=== PATIENT | female | born 1975 | race Caucasian/White ===

== ENCOUNTER 2025-02-26 00:56 | Day surgery (SDC) | payer BC, SELFPAY ==
[2025-02-16 14:00] VITALS: BMI 28.7
--- NOTE | 2025-02-20 13:38 | PC.NURSE ---
Spoke with PATIENT regarding medication XARELTO. PATIENT verbalizes understanding that the last dose is to be taken on 02/23/2025 and the Endoscopist will instruct them when to restart after the procedure.
--- OUTSIDE RECORDS SUMMARY | 2025-02-26 01:01 | XMS_ITS | Clinical Summary ---
Author Organization [facility] Joan ricardo [facility] Address [address] [facility] [place] [address] Care Team Providers Care Electron Gun Inspector Name Role Phone Unavailable Primary Care Provider Unavailabl e Social History Tobacco Use Types Packs/Day Years Used Date Smoking Tobacco: Never Assessed Comments Unknown Sex and Gender Information Value Date Recorded Sex Assigned at Not on file Legal Sex Female 12:01 PM CDT Gender Identity Not on file Sexual Orientation Not on file Plan of Treatment Upcoming Encounters Date Type Department Care Team (Late st Contact Info) Description 06/15/2025 1:30 PM COIL REPAIR TECHNICIAN Office Visit [facility] Oncology and Hematology - [place] [address] [facility] [address] [address] Oniel Garcia MD [address] [facility] [address] [place] [address] Health Maintenance Due Date Last Done Comments DTAP/TDAP/TD VACCINES (1 - Tdap) 1995 HEPATITIS B VACCINES (1 of 3 - 19+ 3-dose series) 01/1996 HPV/Cotest (21-29) 1997 CERVICAL CANCER SCREENING 2006 HPV/Cotest (30-65) 2006 PAP SMEAR 2006 BREAST CANCER SCREENING 2016 COLORECTAL SCREENING 2021 Colorectal Cancer Screening 2021 FIT-DNA Q 3 years 2021 FIT/FOBT Q 1 year 2021 Flex Sig/CT Colonography Q 5 years 2021 INFLUENZA VACCINE (#1) 2024 Insurance [facility] FEDERAL
--- OUTSIDE RECORDS SUMMARY | 2025-02-26 01:01 | XMS_ITS | Clinical Summary ---
Author Organization [facility] Address [address] [place] [address] Care Team Providers Care Inspector Boiler Name Role Phone Nadya Condon MD Primary Care Provider Allergies No known active allergies Medications omeprazole (PriLOSEC) 20 mg capsule 08/29/2019 Active Xarelto 20 mg tablet daily 11/18/2019 Active venlafaxine XR (EFFEXOR-XR) 37.5 mg 24 hr capsule daily 08/28/2019 Active iron 18 mg tablet Take by mouth Active folic acid (FOLVITE) 400 mcg tablet Take 1 tablet (400 mcg total) by mouth daily Active cyanocobalamin (Vitamin B-12) 100 mcg tabletIndication s:Prevention of Vitamin B12 Deficiency Take 1 tablet (100 mcg total) by mouth daily Active Active Problems Problem Noted Date Diagnosed Date Encounter for screening mammogram for breast can cer 03/14/2023 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 Family history of breast cancer 03/10/2021 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 03/10/2021 Breast cancer screening, high risk patient 03/10 Dense breast tissue on mammogram 03/10/2021 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 11/13/2017 Surgical History Surgery Date Site/Laterality Comments TUBAL LIGATION 05/28/2012 - 05/27/2013 Medical History Medical History Date Comments 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 (HCC) 11/13/2017 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 03/10/2021 Fibroid uterus Family History Medical History Relation Name Comments SHYANN Mother Breast cancer Mother Lung cancer Mother Lymphoma Mother Ovarian cancer Other M greast Grandma Colon cancer Neg Hx Pancreatic cancer Neg Hx Prostate cancer Neg Hx Uterine cancer Neg Hx Relation Name Status Comments Mother Alive Other M greast Grandma Social History Tobacco Use Types Packs/Day Years Used Date Smoking Tobacco: Former Cigarettes Smokeless Tobacco: Never Tobacco Cessation:Counseling Given: Not Answered Comments No Sex and Gender Information Value Date Recorded Sex Assigned at Not on file Legal Sex Female 1:48 PM CDT Gender Identity Not on file Sexual Orientation Straight 01/13/2020 12 :27 PM CDT Obstetrics History Para Term AB IAB SAB Ectopic Multiple Livin g Live Births 3 3 3 3 Date Outcome GA Total Labor Labor/2nd/3rd Weight Sex Type Anes PTL Nila A1 A5 Name Clin Term Term Term Last Filed Vital Signs Vital Sign Reading Time Taken Comments Blood Pressure 122/79 04/02/2024 2:46 PM SALES ENGAGEMENT MANAGER Pulse 75 04/02/2024 2:46 PM SALES ENGAGEMENT MANAGER Temperature 36.5 C (97.7 F) 04/02/2024 2:46 PM SALES ENGAGEMENT MANAGER Respiratory Rate 16 04/02/2024 2:46 PM SALES ENGAGEMENT MANAGER Oxygen Saturation 99% 04/02/2024 2:46 PM SALES ENGAGEMENT MANAGER Inhaled Oxygen Concentration - - Weight 73.4 kg (161 lb 12.8 oz) 04/02/2024 2:46 PM SALES ENGAGEMENT MANAGER Height 160 cm (5' 3) 03/14/2023 11:21 AM CDT Body Mass Index 28.66 03/14/2023 11:21 AM CDT Plan of Treatment Health Maintenance Due Date Last Done Comments Colon Cancer Screening-Colonoscopy 1976 Depression Screening 1976 Hepatitis C Screening 1976 DTaP/Tdap/Td Vaccine (1 - Tdap) 1987 Hepatitis B Screening 1994 Cervical Cancer Screening 07/13/2023 07/13/2022 Regular Well Visit/Exam 18-64 07/13/2023 07/13/2022 Influenza Vaccine (#1) 2025 Breast Cancer Screening-Mammogram 04/02/2025 04/02/2024, 03/14/2023, 03/15/2022, Additional history exists Pneumococcal vaccine <65 Aged Out No longer eligible based on patient's age to complete this topic Procedures Procedure Name Priority Date/Time Associated Diagnosis Comments SCREENING MAMMOGRAM BILATERAL W TRISTON Schedule Routine, Read Routine (OP Routine) 04/02/2024 1:45 PM SALES ENGAGEMENT MANAGER Encounter for screening mammogram for breast cancer Breast cancer screening by mammogram PAP AND HIGH RISK HPV, REFLEX TO GENOTYPING Routine 07/13/2022 9:19 AM SALES ENGAGEMENT MANAGER Well woman exam from Last 3 Months or Most Recently Relevant to Health Maintenance Results * Screening Mammogram Bilateral W Triston (04/02/2024 1:45 PM SALES ENGAGEMENT MANAGER) Anatomical Region Laterality Modality Breast Bilateral Mammography Impressions 04/02/2024 2:55 PM SALES ENGAGEMENT MANAGER BI-RADS ATLAS category (overall): 1 - Negative There is no mammographic evidence of malignancy. A 1 year screening mammogram is recommended. The patient has been or will be contacted. We recommend annual screening mammography for women at average risk of breast cancer beginning at age 40, based on guidelines of the [employer] (ACR Practice Parameter for the Performance of Screening and Diagnostic Mammography) and [employer]. For women with and elevated risk of breast cancer, please refer to the ACR Practice Parameter for specific screening recommendations. The patient will be entered into a reminder system with a target due date of 1 year for her next screening exam. Narrative 04/02/2024 2:55 PM SALES ENGAGEMENT MANAGER Screening Mammogram Bilateral W Triston: 04/02/24 The study was acquired using full field digital technology and interpreted from soft copy. 2D digital mammographic views, as well as 3D digital tomosynthesis were performed in the CC and MLO projections. CLINICAL: Encounter for screening mammogram for breast cancer Breast cancer screening by mammogram. No relevant medical history has been documented for this patient. History of breast cancer in Mother. COMPARISONS: 09/10/2023 MRI Breast Bilateral W WO Contrast 03/14/2023 Screening Mammogram Bilateral W Triston 09/09/2022 MRI Breast Bilateral W WO Contrast 03/15/2022 US Breast Left Limited BREAST TISSUE: The breasts are heterogeneously dense, which may obscure small masses. FINDINGS: No suspicious masses, suspicious calcifications, or other suspicious findings are seen within either breast. There has been no suspicious change. us Valentina Lees MD IMG MAMMO PROCEDURES Final Result * Pap and High Risk HPV, reflex to Genotyping (07/13/2022 9:19 AM SALES ENGAGEMENT MANAGER) Thin prep (Pap test) 07/13/2022 9:19 AM SALES ENGAGEMENT MANAGER 07/14/2022 9:19 AM SALES ENGAGEMENT MANAGER Narrative PATHOLOGY [facility] - 07/18/2022 1:28 PM SALES ENGAGEMENT MANAGER [facility] Department of Pathology [address] [place] [address] Final Report with Addendum Note to Patients: This report may contain a detailed description of human tissue sent by a health care provider to the laboratory for pathologic evaluation. The content of this report is essential for diagnosis and may provide important critical findings. This information may be unfamiliar to patients to review without a medical professional present. It is advised that the patient review this report in the presence of a health care provider who can answer questions and explain the details. Patient Name: ROSSI NICOLAS Address: [address] [place] [address] Gender: F : 1975 (Age: 47) Service: Location: [facility] : [id number] [facility] #: [id number] Patient Type: [facility] SPECIMEN Taken: 07/13/2022 Received: 07/14/2022 Accessioned:: 07/17/2022 Reported: 07/18/2022 Physician(s): July Bolton M.D. [facility] Diagnosis: Source of Specimen: SCREENING THIN PREP IMAGED PAP w/ HPV: Specimen Adequacy: - Satisfactory for evaluation; endocervical/transformation zone component present General Categorization: - Negative for intraepithelial lesion or malignancy HARRISON Handy(ASCP) Report Electronically Reviewed and Signed Out By HARRISON Handy(ASCP) 07/18/2022 13:28:55Addenda: HPV Test Interpretation NEGATIVE for types 16, 18, 31, 33, 35, 39, 45, 51, 52, 56, 58, 59, 66 and 68. Test performed utilizing Gen-Probe Aptima assay. HARRISON Costa(ASCP)Report Electronically Reviewed and Signed Out By HARRISON Costa(ASCP) 07/17/2022 16:40:48 Specimen(s) Received: A: SCREENING THIN PREP IMAGED PAP w/ HPV Clinical History: Last Menstrual Period: 06/24/2022 The Pap test is a screening test used to aid in the detection of cervical cancer and its precursors. It should not be the sole means by which malignant and premalignant lesions are diagnosed. Both false negative and false positive results may occur. It also has poor sensitivity for the detection of endometrial lesions and should not be used to evaluate suspected endometrial abnormalities. For these reasons it is most important to obtain Pap tests at regular intervals. The performance characteristics of some immunohistochemical stains, fluorescence in-situ hybridization tests and immunophenotyping by flow cytometry cited in this report (if any) were determined by the Surgical Pathology Department at [facility] as part of an ongoing air quality instrument specialist program and in compliance with federally mandated regulations drawn from the Clinical Laboratory Improvement Act of 1988 (CLIA '88). Some of these tests rely on the use of analyte specific reagents and are subject to specific labeling requirements by the US Food and Drug Administration. Such diagnostic tests may only be performed in a facility that is certified by the Department of Health and Human Services as a high complexity laboratory under CLIA '88. The FDA has determined that such clearance or approval is not necessary. This test is used for clinical purposes. It should not be regarded as investigational or for research. Nevertheless, federal rules concerning the medical use of analyte specific reagents require that the following disclaimer be attached to the report: This test was developed and its performance characteristics determined by the Surgical Pathology Department [facility]. It has not been cleared or approved by the U. S. Food and Drug Administration. us July Bolton MD LAB CYTOLOGY ORDERABLES Fin al Result [facility] from Last 3 Months or Most Recently Relevant to Health Maintenance Insurance BCBS FEDERAL [facility] Care Teams Inspector Boiler Relationship Specialty Start Date End Date Nadya Condon MD [address] [place] [id number] PCP - General Family Medicine 03/24/24
--- OUTSIDE RECORDS SUMMARY | 2025-02-26 01:01 | XMS_ITS | Clinical Summary ---
Author Organization [facility] Address [address] [place] [address] Phone Care Team Providers Care Bin Tripper Operator Name Role Phone Bernadine Nuñez MD Primary Care Provider [phone] Bong Moralez MD Unavailable Unavailable Medications rivaroxaban (XARELTO) 20 MG Tablet Take 20 mg by mouth daily (with dinner). Take with food. Active Omeprazole 20 MG Tablet Delayed Response Take 1 Tab by mouth daily. Active hydrOXYzine (VISTARIL) 25 MG Capsule Take 25 mg by mouth 3 times daily as needed. Active Active Problems Problem Noted Date Diagnosed Date 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 11/13/2017 At risk for falls 11/08/2017 Social History Tobacco Use Types Packs/Day Years Used Date Smoking Tobacco: Every Day Cigarettes Smokeless Tobacco: Never Comments:3-4 cigarettes per day Comments No Sex and Gender Information Value Date Recorded Sex Assigned at Not on file Legal Sex Female 2:00 PM CDT Gender Identity Not on file Sexual Orientation Not on file Last Filed Vital Signs Vital Sign Reading Time Taken Comments Blood Pressure 98/72 11/08/2017 9:54 AM CDT Pulse 74 11/08/2017 9:54 AM CDT Temperature - - Respiratory Rate 11/08/2017 9:54 AM CDT Oxygen Saturation 98% 11/08/2017 9:54 AM CDT Inhaled Oxygen Concentration - - Weight 68.9 kg (152 lb) 11/08/2017 9:54 AM CDT Height 160 cm (5' 3) 11/08/2017 9:54 AM CDT Body Mass Index 26.93 11/08/2017 9:54 AM CDT Plan of Treatment Health Maintenance Due Date Last Done Comments Hepatitis C Virus (HCV) Screening 1976 TdaP Immunization 1976 Hepatitis B Immunization (1 of 3 - 19+ 3-dose series) 1995 Pap Smear 1997 Cervical Cancer Screening (CCS) 2006 HPV/Cotest 2006 Cologuard 2021 Colonoscopy 2021 Colorectal Cancer Screening 2021 Immunochemical Fecal Occult Blood 2021 Influenza Immunization (#1) 2025 SARS-COV-2 Immunization ( season) 2025 Respiratory Syncytial Virus (RSV) Immunization (Adult) (1 - 1-dose 75+ series) 2051 Human Papillomavirus (HPV) Immunization Aged Out No longer eligible b ased on patient's age to complete this topic Meningococcal Immunization (ACWY) Aged Out No longer eligible based on patient's age to complete this topic Pneumococcal Immunization Combined Aged Out No longer eligible based on patient's age to complete this topic Rotavirus Immunization Aged Out No lo nger eligible based on patient's age to complete this topic Insurance Care Teams Bin Tripper Operator Relationship Specialty Start Date End Date Bernadine Nuñez [place] [address] [place] [address] PCP - General Family Medicine 09/27/17 [place] [address] [place] [address] Consulting Physician General Surgery 11/08/17
--- OUTSIDE RECORDS SUMMARY | 2025-02-26 01:01 | XMS_ITS | Clinical Summary ---
Author Organization [facility] Address [address] [place] [address] Care Team Providers Care Vp Purchasing Name Role Phone Juanito Cardoza MD Primary Care Provider [phone] Allergies No known active allergies Medications rivaroxaban (XARELTO) 20 MG Tab tablet Take 1 tablet (20 mg total) by mouth every morning. Active ipratropium-alb uterol (DUONEB) 0.5-2.5 (3) MG/3ML Solution Take 3 mLs by nebulization every 6 (six) hours. 360 mL 3 Active Active Problems Problem Noted Date Diagnosed Date Acute bronchitis 05/10/2023 Social History Tobacco Use Types Packs/Day Years Used Date Smoking Tobacco: Never Smokeless Tobacco: Never Alcohol Use Standard Drinks/Week Comments Not Currently 0 (1 standard drink = 0.6 oz pur e alcohol) [facility] Utilities Answer Date Recorded In the past 12 months has e Ado[employer], oil, or water Glance App threatened to shut off services in your home? No 05/10/2023 Humiliation, Afraid, Rape, and Kick questionnair e Answer Date Recorded Within the last year, have y ou been afraid of your partner or ex-partner? No 05/10/2023 Within the last year, have y ou been humiliated or emotionally abused in other ways by your partner or ex-partner? No Within the last year, have y ou been kicked, hit, slapped, or otherwise physically hurt by your partner or ex-partner? No 05/10/2023 Within the last year, have y ou been raped or forced to have any kind of sexual activity by your partner or ex-partner? No 05/10/2023 Overall Financial Resource Strain (CARDIA) Answe r Date Recorded How hard is it for you to pa y for the very basics like food, housing, medical care, and heating? Not hard at all 05/10/2023 Hunger Vital Sign Answer Date Recorded Within the past 12 months, y ou worried that your food would run out before you got the money to buy more. Never true 05/10/20 23 Within the past 12 months, t he food you bought just didn't last and you didn't have money to get more. Never true 05/10/2023 PRAPARE - Transportation Answer Date Re corded In the past 12 months, has l ack of transportation kept you from medical appointments or from getting medications? No 04/27 In the past 12 months, has l ack of transportation kept you from meetings, work, or from getting things needed for daily living? No 05/10/2023 Housing Stability Vital Sign Answer Adrian e Recorded In the last 12 months, was t here a time when you were not able to pay the mortgage or rent on time? No 05/10/2023 In the last 12 months, how many places have you lived? 1 05/10/2023 In the last 12 months, was t here a time when you did not have a steady place to sleep or slept in a usp (including now)? No 05/10/2023 Comments No Sex and Gender Information Value Date Recorded Sex Assigned at Not on file Legal Sex Female 5:47 PM EMISSION SPECIALIST Gender Identity Not on file Sexual Orientation Not on file Last Filed Vital Signs Vital Sign Reading Time Taken Comments Blood Pressure 123/76 05/11/2023 1:04 PM EMISSION SPECIALIST Pulse 104 05/11/2023 1:04 PM EMISSION SPECIALIST Temperature 36.4 C (97.5 F) 05/11/2023 1:04 PM EMISSION SPECIALIST Respiratory Rate 22 05/11/2023 1:04 PM EMISSION SPECIALIST Oxygen Saturation 91% 05/11/2023 1:04 PM EMISSION SPECIALIST Inhaled Oxygen Concentration - - Weight 70.9 kg (156 lb 3.2 oz) 05/11/2023 4:55 A M EMISSION SPECIALIST Height 157.5 cm (5' 2) 05/10/2023 4:00 PM EMISSION SPECIALIST Body Mass Index 28.57 05/10/2023 4:00 PM EMISSION SPECIALIST Plan of Treatment Health Maintenance Due Date Last Done Comments Cervical Cancer Screening Pa p Smear (Age 30 to 64) Every 3 Years 1976 Colorectal Cancer Screening Colonoscopy (10 Years) 1976 Annual Physical 1979 Hepatitis C 1994 DTaP, Tdap and Td Vaccines ( 1 - Tdap) 1995 Hepatitis B Vaccines (1 of 3 - 19+ 3-dose series) 1995 Cervical Cancer Screening Pa p with HPV Testing (Age 30 to 64) Every 5 Years 2006 Cervical Cancer Screening with HPV 2006 Mammogram Screening 2016 COVID-19 Vaccine (2023-2 5 season) 2025 Meningococcal B Vaccine Aged Out No l onger eligible based on patient's age to complete this topic Meningococcal Vaccine Aged Out No jf stephen eligible based on patient's age to complete this topic Pneumococcal Vaccine: Pediat rics (0 to 5 Years) and At-Risk Patients (6 to 49 Years) Aged Out No longer eligible b ased on patient's age to complete this topic RSV Immunizations Under 20 Months Aged Out No longer eligible based on patient's age to complete this topic Insurance Advance Directives * Full Code (Latest Code Status on File) Date Activated Date Inactivated Comments 05/10/2023 4:09 PM 05/11/2023 6:49 PM Care Teams Vp Purchasing Relationship Specialty Start Date End Date Juanito Cardoza MD [address] [place] [address] PCP - General FAMILY PRACTICE 05/10/23
--- NOTE | 2025-02-26 07:21 | P.PNAN_ITS ---
Anes - Initial Pre Proc Eval Procedure: Operation Date: 02/26/25 14:00 Proposed Procedures p EGD & Screening Colonoscopy - Teddy Gallardo MD Date/Time: 02/26/25 07:21 Surgeon: Teddy Gallardo MD Pre Op Diagnosis: Screening, GERD Patient Data Age: 49 Gender: F Height: 1.6 m Weight: 73.5 kg Allergies Allergy/AdvReac Type Severity Reaction Status Date / Time No Known Allergies Allergy Verified 02/26/25 11:03 Home Medications ?Medication ?Instructions ?Recorded ?Confirmed ?Type famotidine 40 mg tablet 40 mg PO DAILY 02/16/2507/22 History rivaroxaban 20 mg tablet (Xarelto) 20 mg PO DAILY 01/2702/26/25 History Patient hx anesthesia problems: none Family hx anesthesia problems: none Results Review: All pre-operative results and documents have been reviewed as part of the pre- operative evaluation. [facility] Past Medical History Medical History (Updated 02/26/25 @ 12:06 by Pedro Melendez DO) Anticoagulant long-term use Fibroid DVT (deep venous thrombosis) x2 Hyperlipidemia Social History Social History Smoking status: Former smoker Tobacco type: cigarettes Substance use type: does not use Living arrangements: with family Spiritual care concerns: No Anes - Eval Final PreProcedure Day of Procedure 02/26/25 07:21 Patient weight: overweight Heart: regular rate and rhythm Lungs: clear to auscultation Airway: Mallampati scale class II Neurological: alert and oriented Last oral intake: >/= 8 hours ASA classification: III Emergent: no Anesthetic plan: proceed Anesthesia type and monitoring: general GIVS and standard monitoring Results Review: All pre-operative results and documents have been reviewed as part of the pre- operative evaluation. Informed Consent: The patient's anesthetic plan and its attendant risks and benefits were discussed with the patient/family/POA. Questions were solicited and answers provided to the satisfaction of the patient/family/POA.
[2025-02-26 10:55] VITALS: BP 135/76; PULSE 73; RESP 16; TEMP 36.5; O2SAT 100; BMI 28.0
[2025-02-26 11:08] LABS: BEDSIDEPREGUCG Negative (Negative)
[2025-02-26] MEDS: LACTATED RINGERS 1,000 ML 150 ML IV CONT (11:18)
--- NOTE | 2025-02-26 12:19 | PM.HPGS ---
History of Present Illness History of Present Illness Consent: Risks, benefits, and alternatives have been discussed and questions answered. Patient agrees to proceed with procedure. Chief complaint: Screening, GERD Narrative: Giovanna Martinez is a 49 year old female here for first egd and colonoscopy, h/o cough Review of Systems Review of Systems: All systems reviewed & are unremarkable except as noted in HPI and below PMFSH Past Medical History Medical History (Updated 02/26/25 @ 12:24 by Teddy Gallardo MD) Colon cancer screening Cough Anticoagulant long-term use Fibroid DVT (deep venous thrombosis) x2 Hyperlipidemia Social History Social History Smoking status: Former smoker Tobacco type: cigarettes Substance use type: does not use Living arrangements: with family Spiritual care concerns: No Meds Home Medications and Allergies Home Medications ?Medication ?Instructions ?Recorded ?Confirmed ?Type famotidine 40 mg tablet 40 mg PO DAILY 02/16/25 02/26/25 History rivaroxaban 20 mg tablet (Xarelto) 20 mg PO DAILY 02/16/25 02/26/25 History Allergies Allergy/AdvReac Type Severity Reaction Status Date / Time No Known Allergies Allergy Verified 02/26/25 11:03 Vital Signs Vital Signs - 24 hr 02/26/25 10:55 Temperature 97.7 F Pulse Rate 73 Respiratory Rate 16 Blood Pressure 135/76 Pulse Oximetry 100 Oxygen Delivery Room Air Exam Const: General: comfortable and no acute distress HENMT: Face/Nose/Sinus: Normal nares present Eyes: General: appearance normal, both eyes and all related structures Resp: Auscultation: clear to auscultation bilaterally Cardio: Rate: regular rate Rhythm: regular rhythm GI: Inspection: non-distended GI Palp: Yes Soft to palpation Skin: General skin exam: normal color Extrem: General: normal to inspection Psych: Mental Status: mental status grossly normal Assessment and Plan Assessment and plan (1) Cough: Code(s): R05.9 - Cough, unspecified Status: Acute Assessment and Plan: egd (2) Colon cancer screening: Code(s): Z12.11 - Encounter for screening for malignant neoplasm of colon Status: Acute Assessment and Plan: colonoscopy
--- NOTE | 2025-02-26 12:29 | SUR.OPER ---
EGD [id number] Colonoscopy start 1220
[2025-02-26 12:40] VITALS: BP 83/37; PULSE 83; RESP 17; O2SAT 100
--- NOTE | 2025-02-26 12:41 | S_PTH ---
PATIENT: Giovanna Martinez LOC: [facility]#:[id number] AGE/SX: 49/F ROOM: RE02/26/[address]: Teddy Gallardo MD : 1975 BED: DIS: 02/26/2025 SPEC #: [id number] RECD: 02/26/25 13:15 STATUS: AYSHA REKaran #: [id number] TIM: 02/26/25 12:[address]: Teddy Gallardo DEPT: [facility] Surgical RECD BY: Tari Hyman MLT, ([facility]) ENTERED: 02/26/25 13:16 SP TYPE: Surgical OTHR DR: Jose F Martinez, [employer] Tissues: A - Esophageal Biopsy B - Gastric Biopsy C - Colon Polypectomy Procedures: Hematoxylin and Eosin Stain Gross and Microscopic Level 4
[2025-02-26 12:50] VITALS: BP 81/68; PULSE 73; RESP 16; O2SAT 100
[2025-02-26 13:00] VITALS: BP 103/63; PULSE 82; RESP 17; O2SAT 100
== END 2025-02-26 13:17 | disposition home or self-care (01) ==
PROVIDERS: Anesthesiology; PCP Registered Nurse; Visit Provider Internal Medicine Gastroenterology
PROC: 0DJ08ZZ Inspection of Upper Intestinal Tract, Via Natural or Artificial Opening Endoscopic (ICD-10-PCS; CPT 45378; principal; 2025-02-26 14:00)
DX: Z12.11 Encounter for screening for malignant neoplasm of colon (principal); D12.3 Benign neoplasm of transverse colon; K64.8 Other hemorrhoids; Z87.891 Personal history of nicotine dependence
CPT/HCPCS: 45381; 45385; 43239; 88305; J2003; J2704; J7120

== ENCOUNTER 2025-04-21 15:51 | Outpatient (CLI) | payer BC, SELFPAY ==
--- NOTE | ~2025-04-21 | CT_ITS ---
EXAMINATION: CT sinus wo con COMPARISON: None HISTORY: Chronic sinusitis TECHNIQUE: Axial images were obtained without IV contrast. Sagittal, coronal reconstruction images were obtained from the axial views. CT scan performed using dose optimization techniques including the following automated exposure control; adjustment of mA and/or kV; use of iterative reconstruction technique. Automatic exposure control was used to reduce radiation dose. Permanent radiation dose record is archived to PACS. FINDINGS: Visualized brain parenchyma appears unremarkable. The visualized optic globes and soft tissues appear unremarkable. Frontal sinus is unremarkable. Minimal mucosal thickening in the ethmoidal air cells. Minimal mucosal thickening in the maxillary sinuses. The ostiomeatal complexes are patent. Nasal septum deviated to the left with mild narrowing of the left nasal cavity and mild thickening of the turbinates. The sphenoid sinuses demonstrate minimal mucosal thickening. There is no osseous destruction or wall thickening identified IMPRESSION: Sinusitis detailed above Reviewed, dictated and finalized at location [facility] IMPRESSION: Sinusitis detailed above
== END 2025-04-21 15:52 | disposition home or self-care (01) ==
LOC: MICIMG 15:52
PROVIDERS: PCP Family Medicine; Visit Provider Otolaryngology Otolaryngology/Facial Plastic Surgery
DX: J32.9 Chronic sinusitis, unspecified (principal)
CPT/HCPCS: 70486